=== PATIENT | male | born 1960 | race African-American/Black ===

== ENCOUNTER 2020-03-28 19:38 | Emergency (ER) | payer MEDICAID ==
[~2020-03-28] VITALS: Ht 170.2 cm; Wt 73.0 kg
[2020-03-28] MEDS ORDERED: LABETALOL 5MG/ML SYR 20 MG/4 ML SYRINGE IV ONE ×3 (20:00→22:30)
[2020-03-28 20:12] LABS: BASOPHILS % 0.9 % (0.0-2.0); EOSINOPHILS % 1.8 % (0.0-5.0); HEMATOCRIT. 35.1 % (42.0-52.0); LYMPHOCYTES % 11.1 % (20.0-50.0); MEAN CORPUSCULAR HEMOGLOBIN 29.1 pg (28.0-32.0); MEAN CORPUSCULAR VOLUME 93.1 fL (80.0-94.0); MEAN PLATELET VOLUME 9.4 fl (7.4-10.4); MONOCYTES % 6.5 % (2.0-8.0); NEUTROPHILS % 79.7 % (40.0-76.0); PLATELET 175 x1000/uL (130-400); RED BLOOD CELL COUNT 3.77 mill/uL (4.7-6.1); RED CELL DISTRIBUTION WIDTH 15.4 % (11.6-14.6)
[2020-03-28 20:19] LABS: CHLORIDE 97 mEq/L (98-107)
[2020-03-28 20:20] LABS: PARTIAL THROMBOPLASTIN TIME 24.2 sec (23.4-31.0); PROTHROMBIN TIME 10.6 sec (9.6-11.0)
[2020-03-28 20:23] LABS: ETHANOL BLOOD < 10 mg/dL
[2020-03-28 20:26] LABS: LDL CHOLESTEROL 55 mg/dL (5-100)
[2020-03-28 20:27] LABS: BETA HYDROXYBUTYRATE 0.6 mMol/L (0.0-0.3)
[2020-03-28 20:56] LABS: BG BASE EXCESS -9.3 mmol/L (-2.0-2.0); BG CARBOXYHEMOGLOBIN 0.9 % (0.5-1.5); BG DEOXYHEMOGLOBIN 9.4 % (0.0-5.0); BG FRACTION INSPIRED OXYGEN 21; BG HCO3 ACT 16.9 mmol/L (22.0-26.0); BG METHEMOGLOBIN 0.3 % (0.0-1.5); BG OXYGEN SATURATION 90.5 % (92.0-98.5); BG OXYHEMOGLOBIN 89.4 % (94.0-97.0); BG PCO2 37.8 mmHg (35.0-45.0); BG PH 7.267 (7.350-7.450); BG PO2 67.2 mmHg (75.0-100.0); BG SAMPLE SITE RIGHT RADIAL; BG TOTAL HEMOGLOBIN 9.8 g/dL (12.0-18.0); BG VENT MODE ROOM AIR
[2020-03-28] MEDS ORDERED: INSULIN REGULAR (HUMULIN R) 300UNITS/3ML VIAL IV ONE (21:00)
[2020-03-28] MEDS ORDERED: LORAZEPAM 2MG/ML CPJ IV ONE (21:00)
[2020-03-28] MEDS ORDERED: LEVETIRACETAM 500MG PREMIX 100 ML IV ONE (21:00)
[2020-03-28] MEDS ORDERED: ASPIRIN 81MG TABLET PO ONE (21:00)
[2020-03-28] MEDS ORDERED: IOHEXOL-350 100 ML BOTTLE ONE (22:19)
[2020-03-29 00:54] VITALS: BP 163/74
== END 2020-03-29 01:21 | disposition short-term general hospital (02) ==
LOC: ER 19:38
DX: R56.9 Unspecified convulsions (principal); R47.81 Slurred speech; R29.810 Facial weakness; I12.0 Hypertensive chronic kidney disease with stage 5 chronic kidney disease or end stage renal disease; E11.22 Type 2 diabetes mellitus with diabetic chronic kidney disease; E11.65 Type 2 diabetes mellitus with hyperglycemia; N18.6 End stage renal disease; Z99.2 Dependence on renal dialysis; H54.7 Unspecified visual loss; Z79.4 Long term (current) use of insulin
CPT/HCPCS: 36415; 36600; 70450; 70496; 70498; 71045; 80053; 80320; 82010; 82375; 82805; 82962; 83721; 84484; 85025; 85610; 85730; 93005; 96365; 96375; 96376; 99285; J1815; J1953; J2060; J3490; Q9967; G0480